=== PATIENT | female | born 2000 | race Caucasian/White ===

== ENCOUNTER 2021-01-02 17:38 | Emergency (ER) | payer MEDICAID, SELFPAY ==
--- NOTE | 2021-01-02 19:35 | PC.NURSE ---
pt not in waiting room at this time.
== END 2021-01-02 19:05 | disposition left against medical advice (07) ==
PROVIDERS: Emergency Provider Emergency Medicine; PCP Internal Medicine Geriatric Medicine
DX: Z32.00 Encounter for pregnancy test, result unknown (principal)

== ENCOUNTER 2021-01-07 09:43 | Emergency (ER) | payer MEDICAID, SELFPAY ==
--- NOTE | ~2021-01-07 | US_ITS ---
EXAMINATION: US OBSTETRICAL ULTRASOUND CLINICAL INFORMATION: Lower abdominal cramping. Positive . COMPARISON: None. LMP: Unsure. TECHNIQUE: Transabdominal and transvaginal imaging of pelvis is performed . FINDINGS: There is a single intrauterine gestational sac with visible yolk sac, embryo/fetus, and cardiac activity. The uterus is retroverted and retroflexed. There is no significant subchorionic hemorrhage or hematoma. HR: 109 beats per minute. CRL (crown rump length): 0.49 cm (6 weeks and 2 days +/- 4 days). CARTER (estimated date of delivery): 08/31/2021 +/- 4 days. MATERNAL ADNEXA: The right maternal ovary measures 3.24 x 2.34 x 1.85 cm. 7.34 mL volume. There are small multiple follicular cysts. The left maternal ovary measures 2.57 x 2.05 x 1.30 cm. 3.59 mL volume. There are small multiple follicular cysts. There is no significant maternal adnexal mass. No maternal pelvic ascites. US/US OB pelvic and transvaginal IMPRESSION: 1. Single intrauterine gestation with ultrasound gestational age of 6 weeks 2 days +/- 4 days. 2. Estimated date of delivery is 08/31/2021 +/- 4 days. 3. No maternal adnexal mass or pelvic ascites.
[2021-01-07 09:57] VITALS: BP 110/54; PULSE 88; RESP 16; TEMP 36.8; O2SAT 100; BMI 15.7
--- NOTE | 2021-01-07 10:43 | ED.ABDPAIN ---
HPI - Abdominal Pain General Chief Complaint: Abdominal Pain Stated Complaint: sharp abd pain + covid Time Seen by Provider: 01/07/21 09:48 Source: patient Mode of arrival: ambulatory History of Present Illness HPI narrative: 20-year-old female presenting to the ED complaining of lower abdominal cramping and nausea x1 week. Reports to go home test follow was positive. LMP beginning of October. Denies vomiting, vaginal bleeding/spotting, vaginal discharge, dysuria/hematuria, flank pain. MD elicited complaint: abdominal pain Related Data Allergies Allergy/AdvReac Type Severity Reaction Status Date / Time Penicillins [PENICILLINS] Allergy Mild UNKNOWN Unverified 10/29/19 17:22 Review of Systems Review of Systems Constitutional: No Fever, No Chills, No Fatigue, No Malaise ENT/Mouth: No Hearing loss, No Ear Pain, No Nasal Congestion, No sore throat, No Rhinorrhea Eyes: No Eye Pain, No Swelling, No Redness Cardiovascular: No Chest Pain, No SOB, No Palpitations Respiratory: No Cough, No Dyspnea Gastrointestinal: + Nausea, No Vomiting, No Diarrhea, No Constipation, + Abdominal pain Genitourinary: No irregular bleeding, No Dysuria, No Urinary Frequency, No Hematuria,No Flank Pain, No Urinary Flow Changes Musculoskeletal: No joint pain, No Myalgias, No Joint Swelling Skin: No Skin Lesions, No rash Neuro: No Weakness, No Numbness, No Headache Yes all other systems are reviewed and are negative Physical Exam Vital Signs: Vital Signs: Last Vital Signs Temp 98.3 F 01/07/21 09:57 Pulse 95 01/07/21 11:49 Resp 25 H 01/07/21 11:49 BP 110/54 L 01/07/21 09:57 Pulse Ox 98 01/07/21 11:49 Body Mass Index 15.7 Const: General: cooperative, healthy appearing and no acute distress Orientation/consciousness: patient oriented x3 Limitations: no limitations HENMT: Head: Yes normal to inspection and Yes normocephalic Ears: hearing grossly normal bilaterally General nose exam: Normal external nose present Face and sinus: Yes normal facial exam Eyes: General: appearance normal, both eyes and all related structures EOM: EOMs intact bilaterally Neck: Neck: Yes normal visual inspection Resp: Effort & Inspection: normal respiratory effort and no respiratory distress Auscultation: clear to auscultation bilaterally Cardio: Rate: regular rate Heart sounds: S1 normal heart sound present and S2 normal heart sound present GI: Inspection: Yes normal to inspection Palpation (GI): Soft to palpation, nontender, no guarding and not rigid : Other: Pelvic exam deferred General: Yes no CVA tenderness Back/Spine/Pelvis: Back: no CVA tenderness Skin: Rashes: no rashes Wounds: no wounds Neuro: General: patient oriented x3 Gait exam (Neuro): Normal gait present Extrem: General: Yes normal to inspection Course Course Course Narrative: -UA with trace blood/not infected, positive -labs unremarkable -[id number]--patient eloped the ED prior to ultrasound results MDM - Abdominal Pain MDM Narrative Medical decision making narrative: 20-year-old female presenting to the ED complaining of lower abdominal cramping and nausea x1 week. On exam vital signs stable, NAD/nontoxic, abdomen soft/nontender, no CVAT. Concern for ectopic vs ?ovarian cyst/torsion vs normal or threatened . Low concern for appendicitis/diverticulitis without tenderness on exam Plan: Labs, UA, urine , US Medical Records Attestation: I reviewed the patient's medical records. Lab Data Attestation: I reviewed the patient's lab results. Result diagrams: 01/07/21 10:45 01/07/21 10:45 Labs: Lab Results 01/07/21 01/07/21 01/07/21 Range/Units 10:41 10:41 10:45 WBC 10.5 (4.8-10.8) X10*3/uL RBC 3.85 L (4.20-5.50) X10*6/uL Hgb 12.0 (12.0-16.0) g/dl Hct 35.6 L (37.0-47.0) % MCV 92.5 (80.0-98.0) fL MCH 31.2 (27.0-33.0) pg MCHC 33.7 (31.0-35.0) g/dl RDW 12.1 (11.0-16.0) % Plt Count 305 (160-400) X10*3/uL MPV 9.4 (9.4-12.3) fL Immature Gran % (Auto) 0.3 (0.0-0.4) % Neut % (Auto) 61.1 (45-73) % Lymph % (Auto) 27.5 (20-40) % [place] % (Auto) 9.5 (2-11) % Eos % (Auto) 1.2 (0-4) % Baso % (Auto) 0.4 (0-2) % Lymph # (Auto) 2.9 (1.2-4.9) X10*3/uL [place] # (Auto) 1.0 (0.1-1.2) X10*3/uL Eos # (Auto) 0.1 (0.0-0.4) X10*3/uL Baso # (Auto) 0.0 (0.0-0.2) X10*3/uL Abs Immat Gran (auto) 0.03 (0.00-0.03) X10*3/uL Absolute Neuts (auto) 6.4 (2.0-8.3) x10*3/uL Absolute Nucleated RBC 0.000 (0.0-0.012) X10*3/uL Nucleated RBC % (auto) 0.0 (0.0-0.2) /100WBC Sodium (135-145) mmol/L Potassium (3.3-5.1) mmol/L Chloride (96-108) mmol/L Carbon Dioxide (22-29) mmol/L Anion Gap (12-20) BUN (9-16) mg/dL Creatinine (0.5-1.4) mg/dL Estim Creat Clear Calc Estimated GFR Random Glucose (60-115) mg/dL Calcium (8.4-10.2) mg/dL Magnesium (1.6-2.6) mg/dL Total Bilirubin (0.0-1.0) mg/dL Direct Bilirubin (0.0-0.5) mg/dL AST (5-31) U/L ALT (0-31) U/L Alkaline Phosphatase (39-117) U/L Total Protein (6.5-8.0) g/dL Albumin (3.5-5.0) g/dL Lipase (8-78) U/L Beta HCG, Quant mIU/mL Urine Color YELLOW Urine Appearance HAZY Urine pH 6.0 (5.0-8.0) Ur Specific [place] >= 1.030 H (1.005-1.025) Urine Protein NEG (NEG-TRACE) MG/DL Urine Glucose (UA) NEG (NEG) MG/DL Urine Ketones NEG (NEG) MG/DL Urine Blood TRACE (NEG) Urine Nitrite NEG (NEG) Ur Leukocyte Esterase NEG (NEG) Urine RBC 1-4 (0) /HPF Urine WBC 1-4 (0-4) /HPF Ur Squamous Epith Cells 1+ /LPF Urine Bacteria NONE /LPF Urine Mucus 2+ /LPF Urine Test POSITIVE H (NEGATIVE) 01/07/21 Range/Units 10:45 WBC (4.8-10.8) X10*3/uL RBC (4.20-5.50) X10*6/uL Hgb (12.0-16.0) g/dl Hct (37.0-47.0) % MCV (80.0-98.0) fL MCH (27.0-33.0) pg MCHC (31.0-35.0) g/dl RDW (11.0-16.0) % Plt Count (160-400) X10*3/uL MPV (9.4-12.3) fL Immature Gran % (Auto) (0.0-0.4) % Neut % (Auto) (45-73) % Lymph % (Auto) (20-40) % [place] % (Auto) (2-11) % Eos % (Auto) (0-4) % Baso % (Auto) (0-2) % Lymph # (Auto) (1.2-4.9) X10*3/uL [place] # (Auto) (0.1-1.2) X10*3/uL Eos # (Auto) (0.0-0.4) X10*3/uL Baso # (Auto) (0.0-0.2) X10*3/uL Abs Immat Gran (auto) (0.00-0.03) X10*3/uL Absolute Neuts (auto) (2.0-8.3) x10*3/uL Absolute Nucleated RBC (0.0-0.012) X10*3/uL Nucleated RBC % (auto) (0.0-0.2) /100WBC Sodium 136 (135-145) mmol/L Potassium 4.2 (3.3-5.1) mmol/L Chloride 107 (96-108) mmol/L Carbon Dioxide 23 (22-29) mmol/L Anion Gap 10 L (12-20) BUN 10 (9-16) mg/dL Creatinine 0.65 (0.5-1.4) mg/dL Estim Creat Clear Calc 86.4 Estimated GFR > 60 Random Glucose 77 (60-115) mg/dL Calcium 9.5 (8.4-10.2) mg/dL Magnesium 2.0 (1.6-2.6) mg/dL Total Bilirubin 0.4 (0.0-1.0) mg/dL Direct Bilirubin 0.2 (0.0-0.5) mg/dL AST 14 (5-31) U/L ALT 11 (0-31) U/L Alkaline Phosphatase 63 (39-117) U/L Total Protein 7.1 (6.5-8.0) g/dL Albumin 4.2 (3.5-5.0) g/dL Lipase 17 (8-78) U/L Beta HCG, Quant 15747 mIU/mL Urine Color Urine Appearance Urine pH (5.0-8.0) Ur Specific [place] (1.005-1.025) Urine Protein (NEG-TRACE) MG/DL Urine Glucose (UA) (NEG) MG/DL Urine Ketones (NEG) MG/DL Urine Blood (NEG) Urine Nitrite (NEG) Ur Leukocyte Esterase (NEG) Urine RBC (0) /HPF Urine WBC (0-4) /HPF Ur Squamous Epith Cells /LPF Urine Bacteria /LPF Urine Mucus /LPF Urine Test (NEGATIVE) Discharge Plan Discharge Clinical Impression: Abdominal pain during Patient Disposition: Elopement [facility] Past Medical History Attestation statement: The following information was validated with the patient. Social History Social History Advance Directives: No Advance Directives Information Provided: Yes
[2021-01-07 10:47] LABS: UPreg QC Valid YES; Urine Pregnancy POSITIVE (NEGATIVE)
[2021-01-07 10:48] LABS: Appearance Urine HAZY; Color Urine YELLOW; Glucose Urine UA NEG (NEG); Leukocyte Esterase Urine NEG (NEG); Nitrite Urine NEG (NEG); Specific Gravity - Urine >= 1.030 (1.005-1.025); UACC Culture Trigger NO; Urine Blood TRACE (NEG); Urine Ketones NEG (NEG); Urine Protein NEG (NEG-TRACE)
[2021-01-07 10:50] LABS: MANUAL DIFF FLAG NO
[2021-01-07 10:57] LABS: Mucus Urine 2+ /LPF; Squamous Epithelial Cell Urine 1+ /LPF
[2021-01-07 11:00] LABS: Basophils Percent Auto 0.4 % (0-2); Eosinophils Absolute Auto 0.1 X10*3/uL (0.0-0.4); Eosinophils Percent Auto 1.2 % (0-4); Hematocrit 35.6 % (37.0-47.0); Imm Gran Abs Auto 0.03 X10*3/uL (0.00-0.03); Imm Gran Pct Auto 0.3 % (0.0-0.4); Lymphocytes Absolute Auto 2.9 X10*3/uL (1.2-4.9); Lymphocytes Percent Auto 27.5 % (20-40); Mean Corpuscular HGB Conc 33.7 g/dl (31.0-35.0); Mean Corpuscular Hemoglobin 31.2 pg (27.0-33.0); Mean Corpuscular Volume 92.5 fL (80.0-98.0); Mean Platelet Volume 9.4 fL (9.4-12.3); Monocytes Percent Auto 9.5 % (2-11); Neutrophils Absolute Auto 6.4 x10*3/uL (2.0-8.3); Neutrophils Percent Auto 61.1 % (45-73); Platelet Count 305 X10*3/uL (160-400); Red Blood Count 3.85 X10*6/uL (4.20-5.50); Red Cell Distribution Width 12.1 % (11.0-16.0); White Blood Count 10.5 X10*3/uL (4.8-10.8)
[2021-01-07 11:09] LABS: Alanine Aminotransferase 11 U/L (0-31); Albumin Level 4.2 g/dL (3.5-5.0); Alkaline Phosphatase 63 U/L (39-117); Anion Gap 10 (12-20); Aspartate Amino Transferase 14 U/L (5-31); Bilirubin Direct 0.2 mg/dL (0.0-0.5); Bilirubin Total 0.4 mg/dL (0.0-1.0); Blood Urea Nitrogen 10 mg/dL (9-16); Calcium 9.5 mg/dL (8.4-10.2); Carbon Dioxide 23 mmol/L (22-29); Chloride 107 mmol/L (96-108); Creatinine Clr Calc Pharmacy 86.4; Estimated Glomerular Filt Rate > 60; Glucose Random 77 mg/dL (60-115); Lipase 17 U/L (8-78); Potassium 4.2 mmol/L (3.3-5.1); Sodium 136 mmol/L (135-145); Total Protein 7.1 g/dL (6.5-8.0)
[2021-01-07 11:49] VITALS: PULSE 95; RESP 25; O2SAT 98
[2021-01-07 12:28] LABS: HCG Quantitative 19336 mIU/mL
--- NOTE | 2021-01-07 13:42 | PC.NURSE ---
pt walked past this RN and stated im too hungry im leaving and proceeded to walk out into the waiting room. Provider made aware.
== END 2021-01-07 13:55 | disposition left against medical advice (07) ==
PROVIDERS: Physician Assistant; Emergency Provider Emergency Medicine; PCP Internal Medicine Geriatric Medicine
DX: O26.891 Other specified pregnancy related conditions, first trimester (principal); R10.30 Lower abdominal pain, unspecified; Z3A.01 Less than 8 weeks gestation of pregnancy
CPT/HCPCS: 36415; 76801; 76817; 80048; 80076; 81001; 81025; 83690; 83735; 84702; 85025; 99284

== ENCOUNTER 2021-01-17 15:54 | Emergency (ER) | payer MEDICAID, SELFPAY ==
[2021-01-17 16:13] VITALS: BP 112/64; PULSE 70; RESP 18; TEMP 36.9; O2SAT 98; BMI 15.5
[2021-01-17 17:08] LABS: COVID-19 Test Negative (Negative)
[2021-01-17 19:15] LABS: MANUAL DIFF FLAG NO
[2021-01-17 19:17] LABS: Basophils Percent Auto 0.3 % (0-2); Eosinophils Absolute Auto 0.1 X10*3/uL (0.0-0.4); Eosinophils Percent Auto 0.8 % (0-4); Hematocrit 33.3 % (37.0-47.0); Hemoglobin 11.5 g/dl (12.0-16.0); Imm Gran Abs Auto 0.06 X10*3/uL (0.00-0.03); Imm Gran Pct Auto 0.4 % (0.0-0.4); Lymphocytes Absolute Auto 3.3 X10*3/uL (1.2-4.9); Lymphocytes Percent Auto 21.1 % (20-40); Mean Corpuscular HGB Conc 34.5 g/dl (31.0-35.0); Mean Corpuscular Hemoglobin 32.1 pg (27.0-33.0); Mean Platelet Volume 9.7 fL (9.4-12.3); Monocytes Absolute Auto 1.2 X10*3/uL (0.1-1.2); Monocytes Percent Auto 7.5 % (2-11); Neutrophils Absolute Auto 11.1 x10*3/uL (2.0-8.3); Neutrophils Percent Auto 69.9 % (45-73); Platelet Count 259 X10*3/uL (160-400); Red Blood Count 3.58 X10*6/uL (4.20-5.50); Red Cell Distribution Width 12.4 % (11.0-16.0); White Blood Count 15.8 X10*3/uL (4.8-10.8)
[2021-01-17] MEDS: diphenhydrAMINE HCL 50 MG/ML VIAL IVPUSH (19:17)
[2021-01-17] MEDS: Metoclopramide HCl 10 MG/2 ML VIAL IVPUSH (19:17)
[2021-01-17] MEDS: 0.9 % Sodium Chloride 1,000 ML 999 ML IV (19:18)
[2021-01-17 19:25] VITALS: BP 99/62; PULSE 65; RESP 16; TEMP 36.9; O2SAT 100
[2021-01-17 19:27] LABS: IDNOW Serial# 9DD0AD1C; Strep A Nucleic Acid Negative (Negative)
[2021-01-17 19:35] LABS: Alanine Aminotransferase 13 U/L (0-31); Albumin Level 3.9 g/dL (3.5-5.0); Alkaline Phosphatase 55 U/L (39-117); Anion Gap 11 (12-20); Aspartate Amino Transferase 14 U/L (5-31); Bilirubin Total 0.3 mg/dL (0.0-1.0); Blood Urea Nitrogen 13 mg/dL (9-16); Calcium 8.9 mg/dL (8.4-10.2); Carbon Dioxide 20 mmol/L (22-29); Chloride 110 mmol/L (96-108); Estimated Glomerular Filt Rate > 60; Glucose Random 90 mg/dL (60-115); Potassium 3.5 mmol/L (3.3-5.1); Sodium 137 mmol/L (135-145); Total Protein 6.5 g/dL (6.5-8.0)
[2021-01-17 19:37] LABS: Appearance Urine CLEAR; Color Urine YELLOW; Glucose Urine UA NEG (NEG); Leukocyte Esterase Urine NEG (NEG); Nitrite Urine NEG (NEG); Urine Blood NEG (NEG); Urine Ketones 5 MG/DL (NEG); Urine Protein TRACE MG/DL (NEG-TRACE)
[2021-01-17 20:01] LABS: HCG Quantitative 44835 mIU/mL
--- NOTE | 2021-01-17 20:14 | PC.NURSE ---
PT TOLL PO FLUIDS AND CRACKERS. NO FURTHER NAUSEA.
--- NOTE | 2021-01-17 20:30 | ED.GENADULT ---
HPI - General Adult General Chief complaint: Upper Respiratory Symptoms Stated complaint: cough sore throat 9 weeks Time Seen by Provider: 01/17/21 17:05 Source: patient Mode of arrival: ambulatory Limitations: no limitations History of Present Illness HPI narrative: 21-year-old female , 7 weeks 5 days based on CARTER of 08/31/2021 who presents emergency department for evaluation of headache, sore throat, subjective fever and chills, nausea and vomiting x2. Patient states she has been sick for 1-2 days. She denied rhinorrhea, she states she has had a dry cough, she denied chest pain or shortness of breath. She is currently complaining of a headache which is located diffusely throughout her head, the headache is a pressure-like pounding sensation which is 9/10 at its worst. Patient states she has had nausea throughout her and has vomited several times a day. The patient was seen in the emergency department on 01/07/2021 (10 days prior to evaluation and she had a pelvic ultrasound which revealed a single intrauterine gestation sac with age of 6 weeks 2 days +/-4 with an estimated CARTER of 08/31/2021. The patient states she received her 1st Pfizer COVID 19 vaccination 12/28/2020. Related Data Previous Rx's Medication Instructions Recorded acetaminophen 500 mg capsule 1,000 mg PO Q6H PRN #20 cap 01/17/21 diphenhydramine HCl 25 mg capsule 25 mg PO Q6H PRN #20 cap 01/17/21 (Benadryl) metoclopramide HCl 10 mg tablet 10 mg PO Q6H PRN #14 tab 01/17/21 (Reglan) Allergies Allergy/AdvReac Type Severity Reaction Status Date / Time Penicillins [PENICILLINS] Allergy Mild UNKNOWN Verified 01/17/21 17:49 Review of Systems Review of Systems: Yes all other systems are reviewed and are negative [facility] Past Medical History [facility] Narrative: Past medical history: None. Past surgical history: None. Social history: She denies tobacco, alcohol and drug use. Social History Social History Advance Directives: No Advance Directives Information Provided: Yes Physical Exam Vital Signs: Vital Signs: Last Vital Signs Temp 98.4 F 01/17/21 19:25 Pulse 65 01/17/21 19:25 Resp 16 01/17/21 19:25 BP 99/62 01/17/21 19:25 Pulse Ox 100 01/17/21 19:25 BMI result Body Mass Index 15.5 Const: General: cooperative and no acute distress Orientation/consciousness: oriented to person and oriented to place Limitations: no limitations HENMT: Head: Yes normal to inspection, Yes normocephalic and Yes atraumatic Ears: external ears normal General nose exam: Normal external nose present Face and sinus: Yes normal facial exam Mouth: Normal oral and palatal mucosa present Throat: Yes posterior oropharynx normal Eyes: General: appearance normal, both eyes and all related structures Pupils: Equal, round and reactive pupils present Neck: Neck: Yes normal visual inspection, Yes no lymphadenopathy, Yes trachea midline and Yes supple Chest: Chest palpation & inspection: normal inspection of the chest and normal palpation of entire chest wall Resp: Effort & Inspection: normal respiratory effort and able to speak in complete sentences Auscultation: clear to auscultation bilaterally Cardio: Rate: regular rate Rhythm: regular rhythm Heart sounds: S1 normal heart sound present, S2 normal heart sound present and no murmurs GI: Inspection: Yes normal to inspection Palpation (GI): Soft to palpation, nontender and no guarding Auscultation: normal bowel sounds : General: Yes no CVA tenderness Back/Spine/Pelvis: Back: no CVA tenderness Skin: General skin exam: no rashes or lesions noted Neuro: General: oriented to person and oriented to place Cranial nerves: Yes CN's II-XII intact bilaterally and Yes Equal, round and reactive pupils present Cognition (Neuro): normal cognition Motor exam (neuro): 5/5 motor strength present throughout Extrem: General: Yes normal to inspection Psych: Appearance: grossly normal Speech and movement: Normal speech and movement present Affect: normal affect Attitude: cooperative Thought process: Normal thought process present Thought content: Normal thought content present Course Course Course Narrative: 21-year-old female , 7 weeks 5 days based on CARTER of 08/31/2021 who presents emergency department for evaluation of viral-like illness with symptoms including sore throat, cough, headache, subjective fever, chills, dry nonproductive cough. Initial vital signs were unremarkable. Physical examination was unremarkable. Patient was treated with normal saline 1 L IV, her headache and nausea were treated with Reglan 10 mg IV and Benadryl 50 mg IV. 2036: Laboratory evaluation: WBC elevated 15,800, mild anemia with an H&H of 11.5 and 33.3, chloride was elevated 110, bicarb was low at 20, LFTs were normal, quantitative beta-hCG was elevated at 44,835 four thousand eight hundred thirty five this is compared to a quantitative beta HCG of 19,336 on 01/07/2021. Urinalysis was negative. COVID-19 was negative. Patient is feeling better after the above treatment, her headache is resolved. I did discuss my findings with the patient, the patient does have a negative COVID test but she has early on her illness as possible is could be a false negative and I did discuss this with her. She was advised to stay out of work for 1 week. She prescribed Reglan, Benadryl and Tylenol. She was given printed and verbal instructions discharged home. Medical Decision Making Lab Data Result diagrams: 01/17/21 19:09 01/17/21 19:09 Labs: Lab Results 01/17/21 01/17/21 01/17/21 Range/Units 16:48 19:08 19:09 WBC 15.8 H (4.8-10.8) X10*3/uL RBC 3.58 L (4.20-5.50) X10*6/uL Hgb 11.5 L (12.0-16.0) g/dl Hct 33.3 L (37.0-47.0) % MCV 93.0 (80.0-98.0) fL MCH 32.1 (27.0-33.0) pg MCHC 34.5 (31.0-35.0) g/dl RDW 12.4 (11.0-16.0) % Plt Count 259 (160-400) X10*3/uL MPV 9.7 (9.4-12.3) fL Immature Gran % (Auto) 0.4 (0.0-0.4) % Neut % (Auto) 69.9 (45-73) % Lymph % (Auto) 21.1 (20-40) % [place] % (Auto) 7.5 (2-11) % Eos % (Auto) 0.8 (0-4) % Baso % (Auto) 0.3 (0-2) % Lymph # (Auto) 3.3 (1.2-4.9) X10*3/uL [place] # (Auto) 1.2 (0.1-1.2) X10*3/uL Eos # (Auto) 0.1 (0.0-0.4) X10*3/uL Baso # (Auto) 0.0 (0.0-0.2) X10*3/uL Abs Immat Gran (auto) 0.06 H (0.00-0.03) X10*3/uL Absolute Neuts (auto) 11.1 H (2.0-8.3) x10*3/uL Absolute Nucleated RBC 0.000 (0.0-0.012) X10*3/uL Nucleated RBC % (auto) 0.0 (0.0-0.2) /100WBC Sodium (135-145) mmol/L Potassium (3.3-5.1) mmol/L Chloride (96-108) mmol/L Carbon Dioxide (22-29) mmol/L Anion Gap (12-20) BUN (9-16) mg/dL Creatinine (0.5-1.4) mg/dL Estim Creat Clear Calc Estimated GFR Random Glucose (60-115) mg/dL Calcium (8.4-10.2) mg/dL Total Bilirubin (0.0-1.0) mg/dL AST (5-31) U/L ALT (0-31) U/L Alkaline Phosphatase (39-117) U/L Total Protein (6.5-8.0) g/dL Albumin (3.5-5.0) g/dL Beta HCG, Quant mIU/mL Urine Color Urine Appearance Urine pH (5.0-8.0) Ur Specific [place] (1.005-1.025) Urine Protein (NEG-TRACE) MG/DL Urine Glucose (UA) (NEG) MG/DL Urine Ketones (NEG) MG/DL Urine Blood (NEG) Urine Nitrite (NEG) Ur Leukocyte Esterase (NEG) COVID-19 (DOMO) Negative (Negative) COVID-19 Clin Com See Note S. pyogenes GrpA NEGNI Negative (Negative) 01/17/21 01/17/21 Range/Units 19:09 19:09 WBC (4.8-10.8) X10*3/uL RBC (4.20-5.50) X10*6/uL Hgb (12.0-16.0) g/dl Hct (37.0-47.0) % MCV (80.0-98.0) fL MCH (27.0-33.0) pg MCHC (31.0-35.0) g/dl RDW (11.0-16.0) % Plt Count (160-400) X10*3/uL MPV (9.4-12.3) fL Immature Gran % (Auto) (0.0-0.4) % Neut % (Auto) (45-73) % Lymph % (Auto) (20-40) % [place] % (Auto) (2-11) % Eos % (Auto) (0-4) % Baso % (Auto) (0-2) % Lymph # (Auto) (1.2-4.9) X10*3/uL [place] # (Auto) (0.1-1.2) X10*3/uL Eos # (Auto) (0.0-0.4) X10*3/uL Baso # (Auto) (0.0-0.2) X10*3/uL Abs Immat Gran (auto) (0.00-0.03) X10*3/uL Absolute Neuts (auto) (2.0-8.3) x10*3/uL Absolute Nucleated RBC (0.0-0.012) X10*3/uL Nucleated RBC % (auto) (0.0-0.2) /100WBC Sodium 137 (135-145) mmol/L Potassium 3.5 (3.3-5.1) mmol/L Chloride 110 H (96-108) mmol/L Carbon Dioxide 20 L (22-29) mmol/L Anion Gap 11 L (12-20) BUN 13 (9-16) mg/dL Creatinine 0.68 (0.5-1.4) mg/dL Estim Creat Clear Calc 81.0 Estimated GFR > 60 Random Glucose 90 (60-115) mg/dL Calcium 8.9 D (8.4-10.2) mg/dL Total Bilirubin 0.3 (0.0-1.0) mg/dL AST 14 (5-31) U/L ALT 13 (0-31) U/L Alkaline Phosphatase 55 (39-117) U/L Total Protein 6.5 (6.5-8.0) g/dL Albumin 3.9 (3.5-5.0) g/dL Beta HCG, Quant 60386 mIU/mL Urine Color YELLOW Urine Appearance CLEAR Urine pH 7.0 (5.0-8.0) Ur Specific [place] 1.020 (1.005-1.025) Urine Protein TRACE (NEG-TRACE) MG/DL Urine Glucose (UA) NEG (NEG) MG/DL Urine Ketones 5 (NEG) MG/DL Urine Blood NEG (NEG) Urine Nitrite NEG (NEG) Ur Leukocyte Esterase NEG (NEG) COVID-19 (DOMO) (Negative) COVID-19 Clin Com S. pyogenes GrpA NEGIN (Negative) Discharge Plan Discharge Clinical Impression: Viral infection, Headache, First trimester Patient Disposition: Home, Self-Care Instructions: Viral Syndrome (ED) Additional Instructions: Your laboratory evaluation was normal. Your urinalysis was unremarkable Your test was positive in did increase appropriately compared to test on 01/07/2021. Your COVID-19 test today was negative. You have only been sick for 1-2 days and sometimes early on in a COVID infection, the COVID test can be falsely negative. Therefore I want you to isolate at home for 7 days. If your symptoms get worse, if you develops signs of pneumonia such as chest pain, shortness of breath, shortness of breath when you walk around, high fever, shaking chills, productive cough done I want you to return to the emergency department for re-evaluation in retesting for COVID-19. I want you to take the following 3 medications together every 6 hours as needed for headache, nausea or vomiting. Reglan (metoclopramide) in 10 mg, 1 pill Benadryl 25 mg, 2 pills Tylenol (acetaminophen) 500 mg pills, 2 pills. After you take these medications, lie down in a dark quiet room and try to fall asleep. These medications will make you sleepy, do not drive or work after taking these medications. Follow-up with your doctor in 2 days. Please return to the emergency department if your symptoms get worse or if you develop any symptoms that are concerning to you. Please see work note. No work for 7 days, you can return to work on 01/24/2021 Prescriptions: New metoclopramide HCl [Reglan] 10 mg tablet 10 mg PO Q6H PRN (Reason: nausea and vomiting) Qty: 14 RF: 0 diphenhydramine HCl [Benadryl] 25 mg capsule 25 mg PO Q6H PRN (Reason: headache, nausea, vomiting) Qty: 20 RF: 0 acetaminophen 500 mg capsule 1,000 mg PO Q6H PRN (Reason: headache) Qty: 20 RF: 0 Stand Alone Forms: Work/School Release
[2021-01-17 21:09] VITALS: BP 105/60; PULSE 76; RESP 16; O2SAT 98
== END 2021-01-17 21:16 | disposition home or self-care (01) ==
PROVIDERS: Emergency Provider Emergency Medicine Emergency Medical Services; PCP Internal Medicine Geriatric Medicine
DX: O26.91 Pregnancy related conditions, unspecified, first trimester (principal); Z3A.01 Less than 8 weeks gestation of pregnancy; Z37.9 Outcome of delivery, unspecified; Z20.822 Contact with and (suspected) exposure to COVID-19; Z79.899 Other long term (current) drug therapy
CPT/HCPCS: 36415; 80053; 81003; 84702; 85025; 87635; 87651; 96361; 96374; 96375; 99284; J1200; J2765

== ENCOUNTER → 2021-01-26 13:09 | Outpatient (BNVA) | payer MEDICAID, SELFPAY | PROVIDERS: Visit Provider Advanced Practice Midwife | DX: Z32.01 Encounter for pregnancy test, result positive (principal) | CPT/HCPCS: 81025; 99202 ==

== ENCOUNTER 2021-05-25 16:00 | Outpatient (RCR) | payer MEDICAID, SELFPAY | END 2021-06-26 15:48 | disposition home or self-care (01) | LOC: HO.PTCHIC 16:00 | PROVIDERS: PCP Internal Medicine Geriatric Medicine; Visit Provider General Practice | DX: O99.891 Other specified diseases and conditions complicating pregnancy (principal); M54.50 Low back pain, unspecified | CPT/HCPCS: 97110; 97140; 97162 ==

== ENCOUNTER 2023-03-12 10:35 | Outpatient (REF) | payer MEDICAID, SELFPAY ==
[2023-03-12 11:39] LABS: MANUAL DIFF FLAG NO
[2023-03-12 11:53] LABS: Basophils Percent Auto 0.4 % (0-2); Eosinophils Absolute Auto 0.1 X10*3/uL (0.0-0.4); Eosinophils Percent Auto 1.8 % (0-4); Hematocrit 39.7 % (37.0-47.0); Imm Gran Abs Auto 0.02 X10*3/uL (0.00-0.03); Imm Gran Pct Auto 0.3 % (0.0-0.4); Lymphocytes Absolute Auto 2.9 X10*3/uL (1.2-4.9); Lymphocytes Percent Auto 38.4 % (20-40); Mean Corpuscular HGB Conc 32.7 g/dl (31.0-35.0); Mean Corpuscular Hemoglobin 30.4 pg (27.0-33.0); Mean Corpuscular Volume 92.8 fL (80.0-98.0); Mean Platelet Volume 10.6 fL (9.4-12.3); Monocytes Absolute Auto 0.5 X10*3/uL (0.1-1.2); Monocytes Percent Auto 6.3 % (2-11); Neutrophils Percent Auto 52.8 % (45-73); Platelet Count 294 X10*3/uL (160-400); Red Blood Count 4.28 X10*6/uL (4.20-5.50); Red Cell Distribution Width 12.7 % (11.0-16.0); White Blood Count 7.6 X10*3/uL (4.8-10.8)
[2023-03-12 12:58] LABS: Anion Gap 8 (12-20); Blood Urea Nitrogen 14 mg/dL (9-16); Calcium 9.2 mg/dL (8.4-10.2); Carbon Dioxide 25 mmol/L (22-29); Chloride 110 mmol/L (96-108); Estimated Glomerular Filt Rate > 60; Glucose Random 86 mg/dL (60-115); Iron 64 mcg/dL (30-160); Percent Iron Saturation 19 % (15-50); Potassium 3.7 mmol/L (3.3-5.1); Sodium 139 mmol/L (135-145); Total Iron Binding Capacity 331 mcg/dL (228-428); Unsaturated Iron Binding 267 ug/dL
[2023-03-12 13:14] LABS: Ferritin 16 ng/mL (10-122)
== END 2023-03-12 10:36 | disposition home or self-care (01) ==
LOC: HO.HHCL 10:35
PROVIDERS: Visit Provider Internal Medicine Geriatric Medicine
DX: Z00.00 Encounter for general adult medical examination without abnormal findings (principal); N92.6 Irregular menstruation, unspecified
CPT/HCPCS: 36415; 80048; 82728; 83540; 85025

== ENCOUNTER 2023-12-05 16:00 | Outpatient (REF) | payer MEDICAID, SELFPAY ==
[2023-12-08 03:24] LABS: TS Negative Control Passed; TS Panel A 0; TS Panel B 0; TS Positive Control Passed; TSpotTB Negative (Negative)
== END 2023-12-05 16:01 | disposition home or self-care (01) ==
LOC: HO.HHCL 16:00
PROVIDERS: Visit Provider Internal Medicine Geriatric Medicine
DX: Z11.1 Encounter for screening for respiratory tuberculosis (principal)
CPT/HCPCS: 36415; 86481

== ENCOUNTER 2024-04-21 10:08 | Outpatient (REF) | payer MEDICAID, SELFPAY ==
[2024-04-21 11:42] LABS: MANUAL DIFF FLAG NO
[2024-04-21 11:45] LABS: Basophils Percent Auto 0.3 % (0-2); Eosinophils Absolute Auto 0.1 X10*3/uL (0.0-0.4); Eosinophils Percent Auto 1.2 % (0-4); Hematocrit 35.7 % (37.0-47.0); Hemoglobin 11.4 g/dl (12.0-16.0); Imm Gran Abs Auto 0.03 X10*3/uL (0.00-0.03); Imm Gran Pct Auto 0.3 % (0.0-0.4); Lymphocytes Absolute Auto 2.5 X10*3/uL (1.2-4.9); Lymphocytes Percent Auto 24.6 % (20-40); Mean Corpuscular HGB Conc 31.9 g/dl (31.0-35.0); Mean Corpuscular Hemoglobin 29.5 pg (27.0-33.0); Mean Corpuscular Volume 92.5 fL (80.0-98.0); Mean Platelet Volume 10.7 fL (9.4-12.3); Monocytes Absolute Auto 0.6 X10*3/uL (0.1-1.2); Monocytes Percent Auto 5.8 % (2-11); Neutrophils Absolute Auto 6.8 x10*3/uL (2.0-8.3); Neutrophils Percent Auto 67.8 % (45-73); Platelet Count 280 X10*3/uL (160-400); Red Blood Count 3.86 X10*6/uL (4.20-5.50); Red Cell Distribution Width 12.8 % (11.0-16.0)
[2024-04-21 12:39] LABS: Alanine Aminotransferase 11 U/L (0-31); Albumin Level 4.1 g/dL (3.5-5.0); Alkaline Phosphatase 62 U/L (39-117); Anion Gap 9 (12-20); Aspartate Amino Transferase 16 U/L (5-31); Bilirubin Total 0.3 mg/dL (0.0-1.0); Blood Urea Nitrogen 10 mg/dL (9-16); Calcium 8.6 mg/dL (8.4-10.2); Carbon Dioxide 24 mmol/L (22-29); Chloride 112 mmol/L (96-108); Estimated Glomerular Filt Rate > 60; Ferritin 9 ng/mL (10-122); Glucose Random 88 mg/dL (60-115); Iron 77 mcg/dL (30-160); Percent Iron Saturation 24 % (15-50); Potassium 3.8 mmol/L (3.3-5.1); Sodium 141 mmol/L (135-145); TSH reflex Free T4 0.27 uIU/mL (0.32-4.0); Total Iron Binding Capacity 322 mcg/dL (228-428); Total Protein 7.1 g/dL (6.5-8.0); Unsaturated Iron Binding 245 ug/dL
[2024-04-21 14:33] LABS: Free T4 (Free Thyroxine) 0.89 ng/dL (0.71-1.85)
== END 2024-04-21 10:09 | disposition home or self-care (01) ==
LOC: HO.HHCL 10:08
PROVIDERS: Visit Provider Internal Medicine Geriatric Medicine
DX: R53.83 Other fatigue (principal); N92.6 Irregular menstruation, unspecified; Z97.5 Presence of (intrauterine) contraceptive device
CPT/HCPCS: 36415; 80053; 82728; 83540; 84439; 84443; 85025

== ENCOUNTER 2024-05-14 13:37 | Emergency (ER) | payer MEDICAID, SELFPAY ==
[2024-05-14 13:48] VITALS: BP 100/58; PULSE 50; RESP 18; TEMP 36.5; O2SAT 100; BMI 16.0
--- NOTE | 2024-05-14 13:48 | ED.GENADULT ---
HPI - General Adult General Chief complaint: Urogenital-Female Stated complaint: Fever, discomfort upon urination Time Seen by Provider: 05/14/24 18:33 Source: patient Mode of arrival: EMS Limitations: no limitations History of Present Illness ED Provider: Dr. Shaun Kay HPI narrative: 24-year-old female who presents emergency department for evaluation of lower abdominal pain, vaginal discharge, frequency, dysuria fever and chills x3 days. Patient states she has a constant, cramping like sensation to her lower abdomen and points to her suprapubic area when asked to localize the pain. She states that the pain is severe in his 11/20. Patient was also noted an abnormal vaginal discharge. She states that over the last 3 days she was had urinary frequency and dysuria. She also noted some red lumps in her vaginal area. Patient states she was sexually active and last time intercourse 1 week prior. Patient has 1 sexual partner. She states she was had a urinary tract infection in the past but her symptoms feel different than her urinary tract infection. Patient was had no back pain associated with her symptoms. Related Data Home Medications ?Medication ?Instructions ?Recorded ?Confirmed prenat.vits,hermes,[id number] 1 tab PO DAILY 01/26/21 01/26/21 Previous Rx's ?Medication ?Instructions ?Recorded acetaminophen 500 mg tablet 1,000 mg (2 x 500 mg) PO Q6H PRN 05/14/24 (Tylenol Extra Strength) pain #20 tabs doxycycline hyclate 100 mg tablet 100 mg PO Q12H 14 days #28 tabs 05/14/24 ibuprofen 400 mg tablet 400 mg PO TID PRN fever or pain 05/14/24 #30 tabs metronidazole 500 mg tablet 500 mg PO Q12H 14 days #28 tabs 05/14/24 morphine 15 mg immediate release 15 mg PO Q8H PRN pain #10 tabs 05/14/24 tablet Allergies Allergy/AdvReac Type Severity Reaction Status Date / Time Penicillins [PENICILLINS] Allergy Mild UNKNOWN Verified 05/14/24 13:50 Review of Systems Review of Systems: Yes all other systems are reviewed and are negative [facility] Past Medical History [facility] Narrative: Social history: She denies tobacco and alcohol use. She does smoke marijuana. Social History Social History (Updated 01/26/21 @ 13:30 by Oneal Whitehead [facility]) Alcohol intake: never Patient Tobacco Use Status: Never used Tobacco Advance Directives: No Advance Directives Information Provided: Yes Do you have a plan to hurt others: No Plan Patient : No Gender identity: Female Physical Exam ED Vital Signs: Vital Signs - 24 hr 05/14/24 13:48 Temperature 97.7 F Pulse Rate 50 Respiratory Rate 18 Blood Pressure 100/58 L Pulse Oximetry 100 Oxygen Delivery Method Room Air BMI result Body Mass Index 16.0 Vital signs were normal. Exam: General: Awake, alert in no distress Head: Normocephalic, atraumatic EENT: PERRL, Lids normal, sclera normal, conjunctiva normal, nose normal , ears normal, throat without erythema or exudates Neck: Supple, no adenopathy Lung: breath sounds symmetric, no wheezing, rales or rhonchi Chest: symmetric movement, nontender Heart: regular rate and rhythm, normal S1, S2 no murmurs or rubs Abdomen: soft, Moderate to severe suprapubic tenderness, no rebound, no voluntary or involuntary guarding director of housing: External: normal external vaginal exam, no lesions noted, whitish vaginal discharge Cervical: cervical os is open, thick yellowish discharge coming from the cervix, moderate to severe cervical motion tenderness Bimanual: Moderate to severe uterine tenderness, moderate bilateral adnexal tenderness Back: no vertebral tenderness, no CVAT Extremities: no deformities, moves all extremities symmetrically Neuro: Awake, alert, oriented, normal speech, cranial nerves intact, moves all extremities symmetrically Psych: Pleasant, cooperative Course Course Course Narrative: This is a rapid medical exam performed by Chip Oropeza NP: Additional HPI, ROS, PE not included below will be deferred to primary provider. 05/14/24 13:49 Patient is a 24-year-old female presenting with dysuria, suprapubic discomfort, fevers x 3 days. Took ibuprofen [employer] at 8am. Plan: labs, UA Medical Decision Making Medical Decision Making [facility] Narrative: 24-year-old female who presents emergency department for evaluation of lower abdominal pain, vaginal discharge, frequency, dysuria fever and chills x3 days. Patient states she has a constant, cramping like sensation to her lower abdomen and points to her suprapubic area when asked to localize the pain. She states that the pain is severe in his 10/10. Patient was also noted an abnormal vaginal discharge. She states that over the last 3 days she was had urinary frequency and dysuria. She also noted some red lumps in her vaginal area. Patient states she was sexually active and last time intercourse 1 week prior. Patient has 1 sexual partner. She states she was had a urinary tract infection in the past but her symptoms feel different than her urinary tract infection. Patient was had no back pain associated with her symptoms. patient was vital signs were unremarkable. Abdominal exam did reveal suprapubic tenderness. director of housing exam revealed no vaginal lesions, patient had a vaginal and cervical discharge with moderate to severe cervical motion tenderness, moderate to severe uterine tenderness and moderate bilateral adnexal tenderness. Differential diagnosis: Includes but is not limited to Pelvic inflammatory disease, urinary tract infection, tubal ovarian abscess, pelvic abscess, anemia, electrolyte abnormalities Course: 19:52 my independent interpretation patient's laboratory evaluation is as follows: Elevated WBC 03186. CMP was normal. Quantitative beta-hCG was Below detectable limits. Urinalysis was positive for blood. Microscopic revealed 6-10 RBCs, 0-5 WBCs, greater than 20 squamous cells, 4+ bacteria - non clean catch specimen. Patient's director of housing exam was consistent with pelvic inflammatory disease. Patient was treated with ceftriaxone mixed with lidocaine 500 mg IM, metronidazole 500 mg orally and doxycycline 100 mg orally. Patient's pain was treated with Toradol 60 mg IM. Patient was discharged with prescriptions for doxycycline 100 mg q.12 hours times 14 days, metronidazole 500 mg q.12 hours x5 days, ibuprofen and Tylenol and for pain not relieved by these medications she was prescribed morphine 15 mg every 6 hours as needed. Patient was given printed and verbal instructions. She was advised to complete the 14 day course of the medications and to follow-up with our director of housing group and 10-14 days for re-evaluation. Admission/Observation Consideration of admission/observation: Escalation of care including admission/observation considered ( yes) Lab Data [facility] Lab Attestation statement: I reviewed the patient's lab results. 05/14/24 14:21 05/14/24 14:21 Labs: Lab Results 05/14/24 Range/Units 14:21 WBC 12.4 H (4.8-10.8) X10*3/uL RBC 4.12 L (4.20-5.50) X10*6/uL Hgb 12.5 (12.0-16.0) g/dl Hct 37.3 (37.0-47.0) % MCV 90.5 (80.0-98.0) fL MCH 30.3 (27.0-33.0) pg MCHC 33.5 (31.0-35.0) g/dl RDW 12.4 (11.0-16.0) % Plt Count 273 (160-400) X10*3/uL MPV 9.9 (9.4-12.3) fL Immature Gran % (Auto) 0.3 (0.0-0.4) % Neut % (Auto) 67.6 (45-73) % Lymph % (Auto) 25.1 (20-40) % [place] % (Auto) 5.7 (2-11) % Eos % (Auto) 1.1 (0-4) % Baso % (Auto) 0.2 (0-2) % Lymph # (Auto) 3.1 (1.2-4.9) X10*3/uL [place] # (Auto) 0.7 (0.1-1.2) X10*3/uL Eos # (Auto) 0.1 (0.0-0.4) X10*3/uL Baso # (Auto) 0.0 (0.0-0.2) X10*3/uL Abs Immat Gran (auto) 0.04 H (0.00-0.03) X10*3/uL Absolute Neuts (auto) 8.4 H (2.0-8.3) x10*3/uL Absolute Nucleated RBC 0.000 (0.0-0.012) X10*3/uL Nucleated RBC % (auto) 0.0 (0.0-0.2) /100WBC Sodium 140 (135-145) mmol/L Potassium 4.0 (3.3-5.1) mmol/L Chloride 109 H (96-108) mmol/L Carbon Dioxide 25 (22-29) mmol/L Anion Gap 10 L (12-20) BUN 11 (9-16) mg/dL Creatinine 0.64 (0.5-1.4) mg/dL Estim Creat Clear Calc 86.4 Estimated GFR > 60 Random Glucose 105 (60-115) mg/dL Calcium 9.3 D (8.4-10.2) mg/dL Total Bilirubin 0.6 (0.0-1.0) mg/dL AST 14 (5-31) U/L ALT 7 (0-31) U/L Alkaline Phosphatase 64 (39-117) U/L Total Protein 7.2 (6.5-8.0) g/dL Albumin 4.6 (3.5-5.0) g/dL Beta HCG, Quant < 2 mIU/mL Urine Color Yellow Urine Appearance Cloudy Urine pH 5.5 (5.0-9.0) Ur Specific Gill 1.025 (1.005-1.025) Urine Protein Trace (Neg-Trace) mg/dL Urine Glucose (UA) Negative (Negative) mg/dL Urine Ketones 15 (Negative) mg/dL Urine Blood Moderate (2+) H (Negative) Urine Nitrite Negative (Negative) Ur Leukocyte Esterase Negative (Negative) Urine RBC 6-10 H (0-2) /HPF Urine WBC 0-5 (0-5) /HPF Ur Squamous Epith Cells >20 (0-2) /HPF Urine Bacteria 4+ (None Seen) Hyaline Casts 3-5 (0-2) /LPF Prescription Management I considered prescription management with: Pain Medication ( ibuprofen, Tylenol and morphine) and Antibiotic doxycycline and metronidazole Discharge Plan Discharge Clinical Impression: Acute pelvic inflammatory disease Patient Disposition: Home, Self-Care Additional Instructions: Pelvic inflammatory disease instructions: Your presentation and physical findings are consistent with pelvic inflammatory disease (PID). Approximately 30% of the time, pelvic inflammatory disease is caused by sexually transmitted diseases such as Trichomonas, gonorrhea or chlamydia. Approximately 70% of the time, pelvic inflammatory disease is caused by abnormal bacteria (anaerobic bacteria) in your vagina that can cause an infection Medications You received ceftriaxone 500 mg intramuscularly, doxycycline and metronidazole here in the emergency department Take doxycycline 100 mg, 1 pill twice a day for 14 days. Take metronidazole 500 mg, 1 pill twice a day for 14 days. These 3 antibiotics treat sexually transmitted diseases such as gonorrhea, chlamydia and Trichomonas as well as other bacteria that can cause pelvic inflammatory disease. Take ibuprofen 400 mg pills, 1 pills every 6 hours as needed for pain. Take Tylenol (acetaminophen) 500 mg pills, 2 pills every 6 hours as needed for pain. For pain not relieved by ibuprofen or Tylenol take morphine 15 mg pills, 1 pill every 6 hours as needed for pain. This medication will make you sleepy, do not drive or work while taking this medication. Morphine is a narcotic medication and can be addicting. If you are concerned about addiction you can ask the pharmacist for less pills or do not get this prescription filled. Follow-Up Call Dr. Vasquez's group tomorrow to make a follow-up appointment in 10-14 days. DO NOT HAVE SEX UNTIL YOU ARE SEEN BY THE GYNECOLOGY GROUP AND YOUR INFECTION HAS COMPLETELY RESOLVED. Pending laboratory tests: The provider that you see in follow-up will need to review the following results with you: Bacterial vaginosis testing Gonorrhea and chlamydia (cervical swab) Trichomonas testing You can also check these results on the patient portal. Return precautions: Please return to the emergency department if your symptoms get worse if your pain does not go away in 24-48 hours or if you develop any symptoms that are concerning to you. MAKE SURE YOU COMPLETE THE 14 DAY COURSE OF DOXYCYCLINE AND METRONIDAZOLE EVEN IF ALL OF YOUR TESTS WERE NEGATIVE. IF THE SEXUALLY TRANSMITTED DISEASE TESTS ARE POSITIVE THEN YOUR SEXUAL PARTNER(s) WILL NEED TO BE TREATED Prescriptions: New metronidazole 500 mg tablet 500 mg PO Q12H 14 Days Qty: 28 0RF acetaminophen [Tylenol Extra Strength] 500 mg tablet 1,000 mg PO Q6H PRN (Reason: pain) Qty: 20 0RF morphine 15 mg tablet 15 mg PO Q8H PRN (Reason: pain) Qty: 10 0RF Rx Instructions: Partial Fill upon patient request. doxycycline hyclate 100 mg tablet 100 mg PO Q12H 14 Days Qty: 28 0RF ibuprofen 400 mg tablet 400 mg PO TID PRN (Reason: fever or pain) Qty: 30 0RF No Action prenat.vits,hermes,[id number] Tablet 1 tab PO DAILY Referrals: Simon Vasquez MD [Physician] - 2 weeks ( PID needs follow-up in 10-14 days) Stand Alone Forms: Work/School Release Print Language: Slovenian
[2024-05-14 14:26] LABS: MANUAL DIFF FLAG NO
[2024-05-14 14:27] LABS: Basophils Percent Auto 0.2 % (0-2); Eosinophils Absolute Auto 0.1 X10*3/uL (0.0-0.4); Eosinophils Percent Auto 1.1 % (0-4); Hematocrit 37.3 % (37.0-47.0); Hemoglobin 12.5 g/dl (12.0-16.0); Imm Gran Abs Auto 0.04 X10*3/uL (0.00-0.03); Imm Gran Pct Auto 0.3 % (0.0-0.4); Lymphocytes Absolute Auto 3.1 X10*3/uL (1.2-4.9); Lymphocytes Percent Auto 25.1 % (20-40); Mean Corpuscular HGB Conc 33.5 g/dl (31.0-35.0); Mean Corpuscular Hemoglobin 30.3 pg (27.0-33.0); Mean Corpuscular Volume 90.5 fL (80.0-98.0); Mean Platelet Volume 9.9 fL (9.4-12.3); Monocytes Absolute Auto 0.7 X10*3/uL (0.1-1.2); Monocytes Percent Auto 5.7 % (2-11); Neutrophils Absolute Auto 8.4 x10*3/uL (2.0-8.3); Neutrophils Percent Auto 67.6 % (45-73); Platelet Count 273 X10*3/uL (160-400); Red Blood Count 4.12 X10*6/uL (4.20-5.50); Red Cell Distribution Width 12.4 % (11.0-16.0); White Blood Count 12.4 X10*3/uL (4.8-10.8)
[2024-05-14 14:29] LABS: Appearance Urine Cloudy; Color Urine Yellow; Glucose Urine UA Negative (Negative); Leukocyte Esterase Urine Negative (Negative); Nitrite Urine Negative (Negative); PH 5.5 (5.0-9.0); Specific Gravity - Urine 1.025 (1.005-1.025); UMIC TRIGGER UACC YES; Urine Blood Moderate (2+) (Negative); Urine Ketones 15 mg/dL (Negative); Urine Protein Trace mg/dL (Neg-Trace)
[2024-05-14 14:31] LABS: Bacteria Urine 4+ (None Seen); Squamous Epithelial Cell Urine >20 /HPF (0-2); WBC Urine 0-5 /HPF (0-5)
[2024-05-14 14:50] LABS: Alanine Aminotransferase 7 U/L (0-31); Albumin Level 4.6 g/dL (3.5-5.0); Alkaline Phosphatase 64 U/L (39-117); Anion Gap 10 (12-20); Aspartate Amino Transferase 14 U/L (5-31); Bilirubin Total 0.6 mg/dL (0.0-1.0); Blood Urea Nitrogen 11 mg/dL (9-16); Calcium 9.3 mg/dL (8.4-10.2); Carbon Dioxide 25 mmol/L (22-29); Chloride 109 mmol/L (96-108); Creatinine Clr Calc Pharmacy 86.4; Estimated Glomerular Filt Rate > 60; Glucose Random 105 mg/dL (60-115); Sodium 140 mmol/L (135-145); Total Protein 7.2 g/dL (6.5-8.0)
[2024-05-14 14:54] LABS: HCG Quantitative < 2 mIU/mL
[2024-05-14 20:01] VITALS: BP 97/53; PULSE 56; RESP 18; O2SAT 99
[2024-05-14] MEDS: metroNIDAZOLE 500 MG TABLET PO (20:14)
[2024-05-14] MEDS: Doxycycline Monohydrate 100 MG CAPSULE PO (20:14)
[2024-05-14] MEDS: Ketorolac Tromethamine 60 MG/2 ML VIAL IM (20:14)
[2024-05-14] MEDS: cefTRIAXone sodium 500 MG, Lidocaine HCl 1 % MPF 1 ML IM (20:15)
[2024-05-14 20:22] VITALS: BP 97/53; PULSE 56; RESP 18; TEMP 37.1; O2SAT 99
[2024-05-15 02:35] LABS: CT PCR NOT DETECTED (Not Detect.); NG PCR NOT DETECTED (Not Detect.)
[2024-05-15 11:55] LABS: Bacterial Vaginosis PCR POSITIVE (Negative); Candida Group PCR DETECTED (Not Detect); Candida glab krusei PCR NOT DETECTED (Not Detect); Trichomonas vaginalis PCR NOT DETECTED (Not Detect)
== END 2024-05-14 20:29 | disposition home or self-care (01) ==
PROVIDERS: Registered Nurse Emergency; Emergency Provider Emergency Medicine Emergency Medical Services; PCP Internal Medicine Geriatric Medicine
DX: N73.0 Acute parametritis and pelvic cellulitis (principal); N76.0 Acute vaginitis
CPT/HCPCS: 36415; 80053; 81001; 81515; 84702; 85025; 87491; 87591; 96372; 99284; J0696; J1885; J2003

== ENCOUNTER 2024-05-22 09:59 | Outpatient (AMB) | payer MEDICAID, SELFPAY ==
--- NOTE | 2024-05-22 10:00 | A.OFFVIS_ITS ---
Vital Signs 05/22/24 10:13 Height 5 ft 3 in Weight 93 lb BMI 16.5 BP 98/60 Intake Visit Reasons: New patient /ED Follow up Intake Note: Per patient thinks she may have had a pap smear while she was in the ER. Branch Service Leader: Branch Service Leader Present (Kaylene) Accompanied by: Self / Same As Patient Allergies Penicillins [PENICILLINS] Allergy (Mild, Verified 05/22/24 10:07) UNKNOWN Medication List - Last Reconciled 05/22/24 by Emilia Raymond CNM acetaminophen (Tylenol Extra Strength) 1,000 mg (2 x 500 mg) PO Q6H PRN doxycycline hyclate 100 mg PO Q12H 14 days ibuprofen 400 mg PO TID PRN metronidazole 500 mg PO Q12H 14 days Is last menstrual period known: Yes Last menstrual period: 04/10/24 Post menopausal: No Patient : No HPI HPI New patient /ED Follow up: Details: Is here for follow-up from the ER where she was treated for pelvic inflammatory disease on 05/14/2024. She says the pain is better than it was then she has having a hard time taking the medicines she did thinks she skipped 2 doses altogether because she was only taking it once a day at the start but now she is taking both the metronidazole in the doxy twice a day. She did just throw up a little bit after taking the metronidazole. She does not have a big appetite and does not eat very much intends to look at food in her Fridge and not be interested in eating it. She says her primary care provider told her she is a little bit anemic. She has a Nexplanon that was inserted after some questioning and tracing of possible dates probably around January of 2023 at [facility] where she had her 2nd early she had the terminations with the procedure because she chose that she was having symptoms at the time and had missed a period and believes they were both early terminations. She has 1 child who is 3 years old. She has not been sexually active since she was seen in the ER but she normally is. She says she gets her. A lot so for that reason she is not fond of the Nexplanon. [facility] Social History Alcohol intake: never Patient Tobacco Use Status: Never used Tobacco Gender identity: Female Female Reproductive History Menstrual Age of Menarche: 12 Duration of menses: 6-7 days Date of last menstrual period: 04/10/24 control method: implanted Total pregnancies: 3 Full term: 1 Ab induced: 2 History of abnormal pap smear: No Physical Exam Vital Signs: Last Vital Signs BP 98/60 05/22/24 10:13 BMI result Body Mass Index 16.5 Const Other: Patient is extremely slender and underweight. External exam within normal limits vagina is slightly reddened as our labia minora and there were white yeast occurred consistent with yeast cervix is posterior long close thick mobile nontender today uterus is retroverted patient said she was uncomfortable but it did not register as acute PID at this point 1 week and to treatment, so completion of treatment encouraged and explained. Adnexa nontender as well fair tone with Kegel. External Female Exam: normal external appearance Speculum Exam - Vagina: normal appearance of the vagina and normal vaginal discharge Speculum Exam - Cervix: normal appearance of the cervix Bimanual exam- vagina & uterus: normal bimanual exam, uterine size normal, consistency normal, uterine mobility normal, uterine shape normal and non-tender Bimanual Exam- Adnexa, other: normal adnexae, no masses and No adnexal tender ness Results Reviewed Results Reviewed: GC chlamydia trichomoniasis from 05/14/2024 all negative patient was positive for bacterial vaginosis and yeast. Assessment & Plan Assessment & Plan (1) Pelvic inflammatory disease (PID): Comment: Diagnosed and treated 05/14/24 in the ER. Exam 05/22/2024 exhibits improvement continue on medication till completion. Code(s): N73.9 - Female pelvic inflammatory disease, unspecified Category: Medical (2) Yeast infection of the vagina: Comment: Rx Monistat 7 cream with instructions. Code(s): B37.31 - Acute candidiasis of vulva and vagina Category: Medical (3) Underweight (BMI < 18.5): Code(s): R63.6 - Underweight; Z68.1 - Body mass index [BMI] 19.9 or less, adult Category: Medical Plan Reviewed the rationale for why she is being treated with the metronidazole and the doxy Cyclen for PID and the importance of finishing the whole course twice a day as best as she can. Also spent some time discussing nutrition and how she might find her way into eating on a more regular basis but certainly before taking the medications so that they can stay in her system and do the important work they are doing. Discussed the rationale for why even if the cultures for gonorrhea and chlamydia and trich were negative she is being treated as if there were an STD there as pelvic inflammatory disease is considered in that category. I am giving her a prescription for Monistat 7 her vagina is somewhat inflamed and there are white kids consistent with yeast and it did show up in the ER testing. Since she is having difficulty with all of the p.o. meds she clearly needs treatment with the vaginal cream. We can schedule her annual exam and Pap smear in the future coming up, additionally I recommend she refrain from sex until she finishes all of the medications and feels completely completely fine and it has been at least a couple of weeks after she finishes the medicine I also recommend condoms if there is any question whatsoever of partner fidelity. We will see her when she is comes for her annual exam she does have a primary care provider Dr. Sunshine at the [facility]. She thought she was anemic and her CBC in the ER did not demonstrate anemia. Schedule annual exam and Pap Medications: New miconazole nitrate 2% (Miconazole-7) 1 appful vaginal BEDTIME 7 days 45 grams 1RF Coding Level of Care Code New Pt Level 3 (92910) Diagnoses Pelvic inflammatory disease (PID) N73.9 Yeast infection of the vagina B37.31 Underweight (BMI < 18.5) R63.6; Z68.1
[2024-05-22 10:13] VITALS: BP 98/60; BMI 16.5
--- OUTSIDE RECORDS SUMMARY | 2024-05-22 10:35 | XMS_ITS | Clinical Summary ---
Author Organization [facility] Address [address] [place] [address] Care Team Providers Care Emu Farm Worker Name Role Phone NameJose Raul MD Primary Care Provider [phone] Allergies Active Allergy Reactions Criticality Noted Date Comments Penicillin G 03/12/2023 Penicillin V Other reaction(s): unspecified Medications ferrous sulfate (Fe Tabs) 325 (65 Fe) MG EC tablet Take 1 tablet (325 mg) by mouth every other day. Do not crush, chew, or split. 15 tablet 11 04/22/2024 Active Active Problems Problem Noted Date Diagnosed Date Iron deficiency anemia due to chronic blood loss 04/22/2024 Subclinical hyperthyroidism 04/22/[address] 03/12/2023 Resolved Problems Problem Noted Date Diagnosed Date Resolved Date Dysmenorrhea 02/05/2013 03/12/2023 03/12/2023 Encounters Date Type Department Care Team Description 05/21/2024 Telephone [facility] [address] [place] [address] Jose Raul Sunshine MD ER Follow-up 05/14/2024 Orders Only GENERIC EXTERNAL DATA DEPARTMENT Provider, Generic External Data 05/04/2024 Telephone [facility] [address] [place] [address] Becky De Leon CNM 04/24/2024 Population Health Risk Score [facility] ([facility]) Department [address] [phone] Provider, Population Health Generic 04/22/2024 Orders Only [facility] [address] [place] [address] Name, MD Jose Raul Iron deficiency anemia due to chronic blood loss (Primary Dx); Subclinical hyperthyroidism 04/21/2024 9:30 AM EDT [facility] [address] [place] [address] Name, MD Jose Raul Lack of energy (Primary Dx); Irregular periods 04/21/2024 Travel 04/15/2024 Travel 04/10/2024 Patient Outreach [facility] [address] [place] [address] Name, MD Jose Raul Pre-visit Planning (Pre-visit planning - LVM ) from Last 3 Months Immunizations Name Administration Dates Next Due DTaP 11/19/2003, 0,1998,06/07,1998 HPV, Quadrivalent 07/05/2011,01/19/2011,07/04/19 11 Hep A, ped/adol, 2 dose 07/05/2011,07/03/2010 Hep B, Adolescent or Pediatric 1998,1998,1998 Hib (HbO) 06/30/1999, 9,1998,03/15 IPV 01/14/2002, 9,1998,04/07 Influenza injectable quadriv alent preservative free 03/12/2023,12/21/2020,02/29/2016,06/09 Influenza, IIV3, injectable 11/10/2010 Influenza, Split (incl. xiang fied surface antigen) 11/07/2012 Influenza, seasonal, injecta ble, preservative free 04/21/2024 MMR 01/14/2002,03/01/1999 Meningococcal MCV4P ACYW-135 06/10/2015,07/04/19 11 Pfizer Covid-19 Vaccine 12+ 03/12/2023 Tdap 06/13/2021,07/03/2010 Varicella 06/08/2008,03/01/1999 Social History Tobacco Use Types Packs/Day Years Used Date Smoking Tobacco: Never Smokeless Tobacco: Never Tobacco Cessation:Counseling Given: Not Answered Alcohol Use Standard Drinks/Week Comments Never 0 (1 standard drink = 0.6 oz pur e alcohol) Depression Answer Date Recorded Patient Health Questionnaire-9 Score 8 04/21/2024 Patient Health Questionnaire-9 Score 8 04/21/2024 Last PHQ-9: Questionnaire Data Not on file 0 04/21/2024 Housing Stability Answer Date Recorded What is your housing situation today? I have maryan mcarthur 04/21/[address] you li ve. Do you have problems with any of the following? None of the above 04/21/2024 Food Insecurity Answer Date Recorded Within the past 12 months, y ou worried that your food would run out before you got money to buy more: Sometimes True 2024 Within the past 12 months,th e food you bought just didn't last and you didn't have enough money to get more: Never True 04/21/2024 Transportation Answer Date Recorded In the past 12 months, has l ack of transportation kept you from medical appts, meetings, work or from getting things needed for daily living? No 04/21/2024 Utilities Answer Date Recorded In the past 12 months, has t he electric, gas, oil or water company threatened to shut off services in your home? No 04/21/2024 Depression Answer Date Recorded Patient Health Questionnaire-2 Score 3 04/21/2024 Internet Access Answer Date Recorded Internet Access Q1 Yes 04/21/2024 Internet Access Q2 Not on file 04/21/2024 Comments Unknown Sex and Gender Information Value Date Recorded Sex Assigned at Female 12/11/2021 10:18 AM EDT Legal Sex Female 10:18 AM EDT Gender Identity Female 03/05/2023 10:46 AM EST Sexual Orientation Choose not to disclose 2021 10:18 AM EDT Last Filed Vital Signs Vital Sign Reading Time Taken Comments Blood Pressure 108/66 04/21/2024 9:34 AM EDT Pulse 52 04/21/2024 9:34 AM EDT Temperature 36.7 ??C (98.1 ??F) 04/21/2024 9:34 AM ED T Respiratory Rate 16 04/21/2024 9:34 AM EDT Oxygen Saturation 100% 04/21/2024 9:34 AM EDT Inhaled Oxygen Concentration - - Weight 43.2 kg (95 lb 3.2 oz) 04/21/2024 9:34 AM EDT Height 123 cm (4' 0.43 ) 03/12/2023 9:36 AM EST Body Mass Index 28.54 03/12/2023 9:36 AM EST Plan of Treatment Upcoming Encounters Date Type Department Care Team (Late st Contact Info) Description 07/28/2024 10:00 AM EDT Office Visit [facility] [address] [place] [address] Name, MD Jose Raul [address] [place] [address] Health Maintenance Due Date Last Done Comments HIV Screening 1998 Alcohol/Substance Use Screening 2010 Family Planning (PISQ) 2013 Hepatitis C Screening 01/13/2016 Pap Smear 2019 COVID-19 Vaccine ( season) 2023 03/12/2023, 07/25/2021, 01/26/2021, Additional history exists Depression Screening 04/21/2025 04/21/2024, 04/22/19 25 SDOH Screening 04/21/2025 04/21/2024 Tobacco Screening 04/21/2025 04/21/2024 DTaP/Tdap/Td Vaccines (8 - Td or Tdap) 06/14/2031 06/13/2021, 07/03/2010, 11/19/2003, Additional history exists Zoster Vaccines (1 of 2) 01/13/2048 RSV Patients and Patients Aged 60 years or older (1 - 1-dose 75+ series) 2073 Hepatitis B Vaccines Completed 1998, 1998, 1998 HIB Vaccines Completed 06/30/1999, 07/13, 1998, Additional history exists IPV Vaccines Completed 01/14/2002, 07/13, 1998, Additional history exists HPV Vaccines Completed 07/05/2011, 10/2010, 07/03/2010 Hepatitis A Vaccines Completed 07/05/2011, 07/04/19 11 Meningococcal Vaccine Completed 06/10/2015, 011 Influenza Vaccine Completed 04/21/2024, , 12/21/2020, Additional history exists Pneumococcal Vaccine: Pediatrics (0 to 5 Years) and At-Risk Patients (6 to 49) Years) Aged Out No longer eligible based on patient's age to complete this topic RSV under 20 months Aged Out No longe r eligible based on patient's age to complete this topic Rotavirus Vaccines Aged Out No longer eligible based on patient's age to complete this topic Procedures Procedure Name Priority Date/Time Associated Diagnosis Comments BACTERIAL VAGINOSIS PANEL Routine 05/14/2024 7:47 PM EDT CHLAMYDIA/N. GONORRHOEAE RNA, TMA, UROGENITAL Routine 05/14/2024 7:47 PM EDT WET PREP, GENITAL Routine 05/14/2024 7:4 7 PM EDT HCG, TOTAL, QN Routine 05/14/2024 2:21 PM EDT COMPREHENSIVE METABOLIC PANEL Routine 05/14/2024 2:21 PM EDT URINALYSIS, COMPLETE, WITH REFLEX TO CULTURE Routine 05/14/2024 2:21 PM EDT CBC WITH AUTO DIFFERENTIAL Routine 05/14/2024 2:21 PM EDT T4, FREE Routine 04/21/2024 10:10 AM EDT Screening for tuberculosis TSH W/REFLEX TO FT4 Routine 04/21/2024 1 0:10 AM EDT Lack of energy Irregular periods COMPREHENSIVE METABOLIC PANEL Routine 04/21/2024 10:10 AM EDT Lack of energy Irregular periods FERRITIN Routine 04/21/2024 10:10 AM EDT Lack of energy Irregular periods IRON AND TOTAL IRON BINDING CAPACITY Routine 04/21/2024 10:10 AM EDT Lack of energy Irregular periods CBC WITH AUTO DIFFERENTIAL Routine 04/21/2024 10:10 AM EDT Lack of energy Irregular periods from Last 3 Months Results * (ABNORMAL) Bacterial Vaginosis (05/14/2024 7:47 PM EDT) TRICHOMONAS VAGINALIS DETECTION BY PCR NOT DETECTED Not Detect [facility] BACTERIAL VAGINOSIS DETECTION BY PCR POSITIVE(A) Negative [facility] Comment:The BV organism targ ets of the Xpert Xpress MVP test can becommensal in women; Xpert Xpress MVP positive results forbacterial vaginosis should be considered in conjunction withother clinical and patient information to determine thedisease status. Organisms that are not detected by the XpertXpress MVP test have also been reported to be associatedwith BV and aerobic vaginitis.The Xpert Xpress MVP test performance has not been evaluatedin patients under the age of 14. ALYSA GROUP DETECTION BY PCR DETECTED(A) Not Detect [facility] Alysa glab krusei PCR NOT DETECTED Not Detect [facility] 05/14/2024 7:47 PM EDT 05/14/2024 7:57 PM EDT us Generic External Data Provider LAB MICROBIOLOGY - GENERAL ORDERABLES Final Result [facility] [address] [place] [phone] * Chlamydia/N. Gonorrhoeae RNA, TMA, Urogenitial (05/14/2024 7:47 PM EDT) CT PCR NOT DETECTED Not Detect. [facility] Comment:A not detected test result does not exclude the possibilityof infection because test results can be affected byimproper specimen collection, concurrent antibiotic therapy,or the number of organisms in the specimen which may bebelow the sensitivity of the test. As with many diagnostictests, results from the Xpert CT/NG assay should beinterpreted in conjunction with other laboratory andclinical data available to the clinician.Xpert CT/NG performance has not been evaluated in patientsless than 14 years of age. The assay should not be used forthe evaluationof suspected sexual abuse or for other medico-legalindications. Additional testing is recommended in anycircumstance when false positive or false negative resultscould lead to adverse medical, social or psychologicalconsequences. NG PCR NOT DETECTED Not Detect. [facility] Comment:A not detected test result does not exclude the possibilityof infection because test results can be affected byimproper specimen collection, concurrent antibiotic therapy,or the number of organisms in the specimen which may bebelow the sensitivity of the test. As with many diagnostictests, results from the Xpert CT/NG assay should beinterpreted in conjunction with other laboratory andclinical data available to the clinician.Xpert CT/NG performance has not been evaluated in patientsless than 14 years of age. The assay should not be used forthe evaluationof suspected sexual abuse or for other medico-legalindications. Additional testing is recommended in anycircumstance when false positive or false negative resultscould lead to adverse medical, social or psychologicalconsequences. 05/14/2024 7:47 PM EDT 05/14/2024 7:57 PM EDT Narrative [facility] - 05/15/2024 2:35 AM EDT Vaginal Generic External Data Provider LAB MICROBIOLOGY - GENERAL ORDERABLES Final Result Performing Organization Address City/[facility]/ZIP Co de Phone Number [facility] [address] [place] [phone] * Wet prep, genital (05/14/2024 7:47 PM EDT) Vaginal Fluid Vaginal structure / Unknown 05/14/2024 7:47 PM EDT 05/14/2024 7:57 PM EDT Comment:Vaginal Narrative [facility] - 05/14/2024 8:07 PM EDT Trichomonas Prep Direct Microscopic Exam Trichomonas Prep No trichomonads or yeast seen Specimen Source: Vaginal Generic External Data Provider LAB MICROBIOLOGY - GENERAL ORDERABLES Final Result [facility] [address] [place] [phone] [phone] * (ABNORMAL) Urinalysis, Complete, with Reflex to Culture (05/14/2024 2:21 PM EDT) Color Urine Yellow [facility] Appearance Urine Cloudy [facility] PH 5.5 5.0 - 9.0 [facility] Glucose Urine UA Negative Negative mg/dL [facility] Urine Blood Moderate (2+)(A) Negative [facility] Specific [place] - Urine 1.025 1.005 - 1.025 [facility] Urine Protein Trace Neg-Trace mg/dL [facility] Urine Ketones 15 Negative mg/dL [facility] Nitrite Urine Negative Negative [facility] Leukocyte Esterase Urine Negative Negative [facility] RBC Urine 6-10(A) 0 - 2 /HPF [facility] Urine WBC 0-5 0 - 5 /HPF [facility] Urine Squamous Epithelial Cell >20 0 - 2 /HPF [facility] Urine Bacteria 4+ None Seen [facility] Hyaline Casts, Urine 3-5 0 - 2 /LPF [facility] 05/14/2024 2:21 PM EDT 05/14/2024 2:24 PM EDT Narrative [facility] - 05/14/2024 2:34 PM EDT [id number], Clean Catch us Generic External Data Provider LAB URINE ORDERAB LES Final Result [facility] [address] [place] [address] [phone] * (ABNORMAL) CBC auto differential (05/14/2024 2:21 PM EDT) Only the most recent of2 resultswithin the time period is included. White Blood Count 12.4(H) 4.8 - 10.8 X10*3/uL [facility] Red Blood Count 4.12(L) 4.20 - 5.50 X10*6/uL [facility] Hemoglobin 12.5 12.0 - 16.0 g/dl [facility] Hematocrit 37.3 37.0 - 47.0 % [facility] Mean Corpuscular Volume 90.5 80.0 - 98.0 fL [facility] Mean Corpuscular Hemoglobin 30.3 27.0 - 33.0 pg [facility] Mean Corpuscular HGB Conc 33.5 31.0 - 35.0 g/dl [facility] Red Cell Distribution Width 12.4 11.0 - 16.0 % [facility] Platelet Count 273 160 - 400 X10*3/uL [facility] Mean Platelet Volume 9.9 9.4 - 12.3 fL [facility] Neutrophils Percent Auto 67.6 45 - 73 % [facility] Imm Gran Pct Auto 0.3 0.0 - 0.4 % [facility] Lymphocytes Percent Auto 25.1 20 - 40 % [facility] Monocytes Percent Auto 5.7 2 - 11 % [facility] Eosinophils Percent Auto 1.1 0 - 4 % [facility] Basophils Percent Auto 0.2 0 - 2 % [facility] NRBC Pct Auto 0.0 0.0 - 0.2 /100WBC [facility] Neutrophils Absolute Auto 8.4(H) 2.0 - 8.3 x10*3/uL [facility] Imm Gran Abs Auto 0.04(H) 0.00 - 0.03 X10*3/uL [facility] Lymphocytes Absolute Auto 3.1 1.2 - 4.9 X10*3/uL [facility] Monocytes Absolute Auto 0.7 0.1 - 1.2 X10*3/uL [facility] Eosinophils Absolute Auto 0.1 0.0 - 0.4 X10*3/uL [facility] Basophils Absolute Auto 0.0 0.0 - 0.2 X10*3/uL [facility] NRBC Abs Auto 0.000 0.0 - 0.012 X10*3/uL [facility] 05/14/2024 2:21 PM EDT 05/14/2024 2:24 PM EDT Generic External Data Provider LAB BLOOD ORDERAB LES Final Result Performing Organization Address [facility] Co de Phone Number [facility] [address] [place] [phone] [phone] * hCG, Total, Quantitative (05/14/2024 2:21 PM EDT) HCG Quantitative <2 mIU/mL [facility] Comment:Weeks post LMP Appro ximate hCG(Last Menstrual Period) Range (mIU/ml)3 - 4 weeks 9 - 1304 - 5 weeks 75 - 2,6005 - 6 weeks 850 - 20,8006 - 7 weeks 4000 - 100,2007 - 12 weeks 11,500 - 289,51043 - 16 weeks 18,300 - 137,13953 - 29 weeks (2nd trimester) 1,400 - 53,22829 - 41 weeks (3rd trimester) 940 - 60,000The Childs B- hCG assay is used for the early detection ofpregnancy; it cannot be used to diagnose any conditionunrelated to . If a B-hCG level is not supportedby the clinical evidence, results should be confirmed by analternative method (qualitative urine hCG, for example). 05/14/2024 2:21 PM EDT 05/14/2024 2:24 PM EDT Generic External Data Provider LAB BLOOD ORDERAB LES Final Result Performing Organization Address [facility] Co de Phone Number [facility] [address] [place] [address] [phone] * (ABNORMAL) Comprehensive Metabolic Panel (05/14/2024 2:21 PM EDT) Only the most recent of2 resultswithin the time period is included. Sodium 140 135 - 145 mmol/L [facility] Potassium 4.0 3.3 - 5.1 mmol/L [facility] Chloride 109(H) 96 - 108 mmol/L [facility] Carbon Dioxide 25 22 - 29 mmol/L [facility] Anion Gap 10(L) 12 - 20 [facility] Urea Nitrogen (BUN) 11 9 - 16 mg/dL [facility] Creatinine, Serum 0.64 0.5 - 1.4 mg/dL [facility] Creatinine Clr Calc Pharmacy 86.4 [facility] Comment:Provided height and weight: 160.02 cm,41.1 kg.eGFR (calculated from the MDRD study equation) and eCrCl(calculated from the Cockcroft-Gault equation) are based ondifferent parameters and may not yield comparable results.If eCrCl result is absurd, please check patient'sheight/weight. Estimated Glomerular Filt Rate >60 [facility] Comment:Chronic Kidney Disea se: Estimated GFR < 60 mL/min/1.83m3Qbaguh Kidney Disease: Estimated GFR < 15 mL/min/1.73m2 Glucose 105 60 - 115 mg/dL [facility] Calcium 9.3 8.4 - 10.2 mg/dL [facility] Bilirubin, Total 0.6 0.0 - 1.0 mg/dL [facility] Aspartate Amino Transferase 14 5 - 31 U/L [facility] Alanine Aminotransferase 7 0 - 31 U/L [facility] Total Protein 7.2 6.5 - 8.0 g/dL [facility] Albumin Level 4.6 3.5 - 5.0 g/dL [facility] Alkaline Phosphatase 64 39 - 117 U/L [facility] 05/14/2024 2:21 PM EDT 05/14/2024 2:24 PM EDT us Generic External Data Provider LAB BLOOD ORDERAB LES Final Result [facility] [address] [place] [address] [phone] * (ABNORMAL) TSH W/Reflex to FT4 (04/21/2024 10:10 AM EDT) TSH reflex Free T4 0.27(L) 0.32 - 4.0 uIU/mL [facility] Blood Venous blood specimen / Unknown 04/21/2024 10:10 AM EDT 04/21/2024 11:29 AM EDT us Jose Raul Sunshine MD LAB BLOOD ORDERABLES Final Resul t Performing Organization Address [facility] Co de Phone Number [facility] [address] [place] [phone] * Iron And Total Iron Binding Capacity (04/21/2024 10:10 AM EDT) Iron 77 30 - 160 mcg/dL [facility] Total Iron Binding Capacity 322 228 - 428 mcg/dL [facility] Percent Iron Saturation 24 15 - 50 % [facility] Unsaturated Iron Binding 245 ug/dL [facility] Blood Venous blood specimen / Unknown 04/21/2024 10:10 AM EDT 04/21/2024 11:29 AM EDT us Jose Raul Sunshine MD LAB BLOOD ORDERABLES Final Resul t Performing Organization Address [facility] de Phone Number [facility] [address] [place] [phone] * T4, Free (04/21/2024 10:10 AM EDT) Free T4 (Free Thyroxine) 0.89 0.71 - 1.85 ng/dL [facility] 04/21/2024 10:1 0 AM EDT 04/21/2024 11:29 AM EDT us Jose Raul Sunshine MD LAB BLOOD ORDERABLES Final Resul t Performing Organization Address [facility] Co de Phone Number [facility] [address] [place] [phone] * (ABNORMAL) Ferritin (04/21/2024 10:10 AM EDT) Ferritin 9(L) 10 - 122 ng/mL [facility] Blood Venous blood specimen / Unknown 04/21/2024 10:10 AM EDT 04/21/2024 11:29 AM EDT us Jose Raul Sunshine MD LAB BLOOD ORDERABLES Final Resul t [facility] [address] [place] [address] [phone] from Last 3 Months [facility] [employer] Care Teams Emu Farm Worker Relationship Specialty Start Date End Date Name, MD Jose Raul [address] [place] [phone] PCP - General Family Medicine 10/17/18
--- OUTSIDE RECORDS SUMMARY | 2024-05-22 10:35 | XMS_ITS | Encounter Summary ---
Author Organization [facility] [employer] Address [address] [place] [address] [address] [place] [address] Care Team Providers Care Neuroscientist Name Role Phone NameJose Raul MD Primary Care Provider [phone] Reason for Visit * Reason Onset Date Comments Appointment Request 03/04/2023 Encounter Details Date Type Department Care Team ([facility] Contact Info) Description 03/04/[address] [address] NameJose Raul MD [address] [place] [phone] Appointment Request Social History Tobacco Use Types Packs/Day Years Used Date Smoking Tobacco: Never Assessed Comments Unknown Sex and Gender Information Value Date Recorded Sex Assigned at Female 12/11/2021 10:18 AM EDT Legal Sex Female 10:18 AM EDT Gender Identity Female 03/05/2023 10:46 AM EST Sexual Orientation Choose not to disclose 2021 10:18 AM EDT documented as of this encounter Miscellaneous Notes * Telephone Encounter - Comfort Winkler - 03/04/2023 11:19 AM EST Tc from pt requesting PE appt,needed for work. documented in this encounter Plan of Treatment Upcoming Encounters Date Type Department Care Team ([facility] Contact Info) Description 07/28/2024 10:00 AM EDT Office Visit [address] [address] Jose Raul Sunshine MD [address] [place] [address] documented as of this encounter Visit Diagnoses Not on filedocumented in this encounter Care Teams Neuroscientist Relationship Specialty Start Date End Date Name, MD Jose Raul [address] [place] [address] PCP - General Family Medicine 10/17/18 documented as of this encounter
--- OUTSIDE RECORDS SUMMARY | 2024-05-22 10:36 | XMS_ITS | Encounter Summary ---
Author Organization [employer] Address [address] [facility] [address] [place] [address] Care Team Providers Care Short Story Writer Name Role Phone Name, Jose Raul CASTANEDA Primary Care Provider [phone] Reason for Visit * Reason Onset Date Comments ER Follow-up 05/21/2024 Encounter Details Date Type Department Care Team ([facility] st Contact Info) Description 05/21/2024 Telephone [facility] MEDICINE [address] [place] [address] Name, MD Jose Raul [address] [place] [address] ER Follow-up Social History Tobacco Use Types Packs/Day Years Used Date Smoking Tobacco: Never Smokeless Tobacco: Never Alcohol Use Standard Drinks/Week Comments Never 0 [...] encounter Miscellaneous Notes * Telephone Encounter - Lisa Jnoes RN - 05/21/2024 10:38 AM EDT TC placed to pt regarding [facility] ED visit on 05/15/24 for UTI. Pt denies fever, chills, urinary discomfort. Pt reports she is a little foggy on all these medications. Pt reports she has a little abdominalpain, but only when the medications wear off. Pt has been taking medications prescribed by ED. Pt re ports she accidentally only took one pill instead of two pills on 2 seperate days. Advised pt to take medication as prescribed until complete. ED note states pt is to follow up with Dr. Vasquez's office. Pt reports she called and they told her they would call back. Pt reports she has not received a callback. Advised pt to call their office again to schedule an appointment. Pt offered a follow up with [facility] office and pt declines wanting an appointment with our office at this time as she would like to follow up with per ED note. Advised pt to come to [facility] or return to ED if symptoms are not improved after completion of medications. Pt agrees to plan. Pt reports they will call [facility] 's office to schedule. Pt denies further questions at this time. * Telephone Encounter - Wesley Dhaliwal - 05/21/2024 9:45 AM EDT Patient calling to report ED visit on : Date: 05/15/24 Hospital: [facility] Seen for: UTI Symptomatic No *if yes message should go to Triage Patient advised will forward to team nurse for follow up Contact pt at [phone] documented in this encounter Plan of Treatment Upcoming Encounters Date Type Department Care Team (Late st Contact Info) Description 07/28/2024 10:00 AM EDT Office Visit [facility] MEDICINE [address] [place] [id number] Name, MD Jose Raul [address] [place] [phone] documented as of this encounter Visit Diagnoses Not on filedocumented in this encounter Additional Health Concerns Assessment Noted Time PHQ-9 Depression Total Score: 8 04/22/19 25 10:19 AM EDT documented as of this encounter Care Teams Short Story Writer Relationship Specialty Start Date End Date Name, MD Jose Raul [address] [place] [phone] PCP - General Family Medicine 10/17/18 documented as of this encounter
== END 2024-05-22 11:02 | disposition home or self-care (01) ==
LOC: HO.HWSM 09:59
PROVIDERS: PCP Internal Medicine Geriatric Medicine; Visit Provider Advanced Practice Midwife
DX: N73.9 Female pelvic inflammatory disease, unspecified (principal); B37.31 Acute candidiasis of vulva and vagina; R63.6 Underweight; Z68.1 Body mass index [BMI] 19.9 or less, adult
CPT/HCPCS: 99203

== ENCOUNTER → 2024-05-22 09:59 | Outpatient (BNVA) | payer MEDICAID, SELFPAY | PROVIDERS: PCP Internal Medicine Geriatric Medicine; Visit Provider Advanced Practice Midwife | DX: N73.9 Female pelvic inflammatory disease, unspecified (principal); B37.31 Acute candidiasis of vulva and vagina; R63.6 Underweight; Z68.1 Body mass index [BMI] 19.9 or less, adult; Z79.2 Long term (current) use of antibiotics; Z79.899 Other long term (current) drug therapy | CPT/HCPCS: 99212 ==

== ENCOUNTER 2024-08-31 11:45 | Outpatient (REF) | payer MEDICAID, SELFPAY ==
--- OUTSIDE RECORDS SUMMARY | 2024-08-31 12:48 | XMS_ITS | Encounter Summary ---
Author Organization [employer] Address [address] [place] [address] Care Team Providers Care Dynamic Balancer Set Up Worker Name Role Phone Name, Jose Raul CASTANEDA Primary Care Provider [phone] Reason for Visit * Reason Onset Date Comments Appointment Request 03/04/2023 Encounter Details Date Type Department Care Team ([facility] st Contact Info) Description 03/04/2023 Telephone [facility] MEDICINE [address] [place] [address] Name, MD Jose Raul [address] [place] [address] Appointment Request Social History Tobacco Use Types [...] documented in this encounter Plan of Treatment Not on file documented as of this encounter Visit Diagnoses Not on filedocumented in this encounter Care Teams Dynamic Balancer Set Up Worker Relationship Specialty Start Date End Date Name, MD Jose Raul [address] [place] [id number] PCP - General Family Medicine 10/17/18 documented as of this encounter
[2024-08-31 14:25] LABS: Free T4 (Free Thyroxine) 0.91 ng/dL (0.71-1.85)
[2024-09-03 23:48] LABS: C. Trachomatis RNA TMA, Throat NOT DETECTED; N. gonorrhoeae RNA TMA, Throat NOT DETECTED
[2024-09-14 10:01] LABS: C. trachomatis RNA TMA NOT DETECTED; N. gonorrhoeae RNA TMA NOT DETECTED
[2024-09-14 10:03] LABS: Trichomonas (NAAT) DETECTED
== END 2024-08-31 11:46 | disposition home or self-care (01) ==
LOC: HO.HHCL 11:45
PROVIDERS: PCP Internal Medicine Geriatric Medicine; Visit Provider Advanced Practice Midwife
DX: Z11.3 Encounter for screening for infections with a predominantly sexual mode of transmission (principal); Z12.4 Encounter for screening for malignant neoplasm of cervix; N93.9 Abnormal uterine and vaginal bleeding, unspecified
CPT/HCPCS: 36415; 84439; 84443; 87491; 87591; 87626; 87661; 88175

== ENCOUNTER 2024-09-01 09:09 | Outpatient (REF) | payer MEDICAID, SELFPAY ==
--- OUTSIDE RECORDS SUMMARY | 2024-09-02 12:39 | XMS_ITS | Encounter Summary ---
Author Organization [employer] Address [address] [place] [address] Care Team Providers Care Geopolitics Teacher Name Role Phone Name, Jose Raul CASTANEDA Primary Care Provider [phone] Reason for Visit * Reason Onset Date Comments Appointment Request 03/04/2023 Encounter Details Date Type Department Care Team ([facility] st Contact Info) Description 03/04/2023 Telephone [facility] MEDICINE [address] [place] [address] Name, MD Jose Raul [address] [place] [address] Appointment Request Social History Tobacco Use Types [...] on filedocumented in this encounter Care Teams Geopolitics Teacher Relationship Specialty Start Date End Date Name, MD Jose Raul [address] [place] [id number] PCP - General Family Medicine 10/17/18 documented as of this encounter
== END 2024-09-01 09:10 | disposition home or self-care (01) ==
LOC: HO.LNP 09:09
PROVIDERS: Visit Provider Advanced Practice Midwife
DX: Z13.89 Encounter for screening for other disorder (principal)
CPT/HCPCS: 87491; 87591; 87626; 87661; 88175